=== PATIENT | female | born 1945 | race Caucasian/White ===

== ENCOUNTER 2018-09-13 11:17 | Emergency (ER) | payer MEDICARE, OTHER | END 2018-09-13 15:02 | disposition home or self-care (01) | LOC: FTE 11:17 | DX: S99.922A Unspecified injury of left foot, initial encounter (principal); W22.8XXA Striking against or struck by other objects, initial encounter; Y92.009 Unspecified place in unspecified non-institutional (private) residence as the place of occurrence of the external cause | CPT/HCPCS: 73660; 73700; 99284-25 ==